=== PATIENT | female | born 1975 | race Caucasian/White ===

== ENCOUNTER 2020-04-17 09:43 | Outpatient (CLI) | payer BC, SELFPAY ==
[2020-04-17 10:54] LABS: Influenza Control Valid (Valid)
[2020-04-19 18:58] LABS: SARS-CoV-2 RNA PCR Negative
== END 2020-04-17 09:44 | disposition home or self-care (01) ==
LOC: CHSLAB 09:54
PROVIDERS: PCP Family Medicine; Visit Provider Family Medicine
DX: J00 Acute nasopharyngitis [common cold] (principal); Z20.828 Contact with and (suspected) exposure to other viral communicable diseases
CPT/HCPCS: 87081; 87635; 87804; 87880; C9803; U0003

== ENCOUNTER 2021-10-13 12:13 | Outpatient (CLI) | payer OTHER, SELFPAY ==
--- NOTE | ~2021-10-13 | CT_ITS ---
EXAMINATION: CT abdomen pelvis wo con DATE: 10/13/2021 12:40 INDICATION: Intermittent generalized abdominal pain, periumbilical pain, with nausea, vomiting, const ipation TECHNIQUE: Computed tomography (CT) of the abdomen and pelvis was performed without intravenous contr ast. Automated exposure control and iterative reconstruction technique were employed. Exam dose: 213 .87 mGy-cm total exam DLP. COMPARISON: 04/23/2019 CT abdomen pelvis FINDINGS: The lung bases are clear. Normal heart size. No pericardial or pleural effusion. The liver, gallbladder, bile ducts, spleen, pancreas and pancreatic duct are unremarkable. Normal morphology of the adrenal glands. No renal mass lesion or urinary tract calculus or hydroureteronephrosis.. The uterus, adnexal areas and urinary bladder are unremarkable. There is evidence of bilateral tubal ligation. Normal caliber of the abdominal aorta. No intraperitoneal or retroperitoneal or pelvic mass lesion or adenopathy or ascites. No suspicious osteolytic or osteoblastic lesions. Probable appendectomy. No bowel obstruction or intraperitoneal free air. IMPRESSION: Probable appendectomy Bilateral tubal ligation Reviewed, dictated and finalized at [facility]. Reviewed, dictated and finalized at [facility].
== END 2021-10-13 12:14 | disposition home or self-care (01) ==
PROVIDERS: PCP Family Medicine; Visit Provider Family Medicine
DX: R10.84 Generalized abdominal pain (principal)
CPT/HCPCS: 74176

== ENCOUNTER 2021-10-14 14:22 | Outpatient (CLI) | payer OTHER, SELFPAY ==
--- NOTE | ~2021-10-14 | MM_ITS ---
CORRECTED REPORT order change 10/15/21 [facility] [place] EXAMINATION: MM screening mammo BI w ruba HISTORY: Screening TECHNIQUE: Craniocaudal and mediolateral oblique 3-D tomosynthesis images were obtained and synthetic 2-D images were generated. CAD analysis was submitted and interpreted. COMPARISON: No prior mammogram is available for comparison at this institution. BREAST PARENCHYMAL COMPOSITION: Breast composed of scattered areas of fibroglandular density FINDINGS: There is a focal asymmetric mass in the lower inner quadrant of the right breast, middle third. The left breast is within normal limits without suspicious mass, calcification or architectural distortion. IMPRESSION: 1. Right breast mass, lower inner quadrant. 2. Additional spot compression and mediolateral views with possible follow-up breast ultrasound recommended. BI-RADS CATEGORY 0 - INCOMPLETE STUDY, NEED ADDITIONAL IMAGING EVALUATION. Reviewed, dictated and finalized at [facility]. MTDD IMPRESSION: 1. Right breast mass, lower inner quadrant. 2. Additional spot compression and mediolateral views with possible follow-up b reast ultrasound recommended. BI-RADS CATEGORY 0 - INCOMPLETE STUDY, NEED ADDITIONAL IMAGING EVALUATION.
== END 2021-10-14 14:23 | disposition home or self-care (01) ==
LOC: CHSIMG 14:22
PROVIDERS: PCP Family Medicine; Visit Provider Family Medicine
DX: Z12.31 Encounter for screening mammogram for malignant neoplasm of breast (principal)
CPT/HCPCS: 77063; 77067

== ENCOUNTER 2021-10-22 10:06 | Outpatient (CLI) | payer OTHER, SELFPAY ==
--- NOTE | ~2021-10-22 | MMUS_ITS ---
EXAMINATION: MM diagnostic paul RT w ruba, US breast RT complete HISTORY: Focal asymmetry mass in the lower inner quadrant of right breast middle third reported on screening mammogram TECHNIQUE: Additional 3-D tomosynthesis images of the right breast were performed and synthetic 2-D i mages were generated. CAD analysis was submitted and interpreted. High resolution complete right [address] st ultrasound including all 4 quadrants and subareolar area was performed. COMPARISON: 10/17/2021 bilateral screening mammogram FINDINGS: MAMMOGRAPHIC FINDINGS: Approximately 9 mm ill-defined low density opacity is noted in the lower inner right breast. Otherwise no suspicious mass or architectural distortion, malignant calcification, skin thickening or retraction is evident. ULTRASOUND: 3:00 3 cm from nipple: Parallel circumscribed hypoechoic 1.6 x 4.6 x 4.1 mm lesion without internal v ascularity or posterior shadowing, benign in appearance, likely septated cyst 3:00 2 cm from nipple: 4.6 x 1.3 x 4.6 mm circumscribed parallel hypoechoic lesion, benign in appeara nce 4:00 3 cm from nipple: Parallel circumscribed sonolucency measuring 5.6 x 1.7 x 5.7 mm, consistent wi th small cyst 5:00 3 cm from nipple: Parallel circumscribed hypoechoic solid lesion measuring 10.5 x 3 x 9.9 mm, wi th through transmission, benign in appearance, likely fibroadenoma 6:00 4 cm from nipple: Parallel circumscribed hypoechoic 6.8 x 2.1 x 6.6 mm solid lesion, without int ernal vascularity or posterior shadowing, likely benign IMPRESSION: 1. Probable benign right breast masses 2. 6 month diagnostic right mammogram and right breast ultrasound follow-up is recommended BI-RADS category 3, probably benign findings. Reviewed, dictated and finalized at [facility]. IMPRESSION: 1. Probable benign right breast masses 2. 6 month diagnostic right mammogram and right breast ultrasound follow-up is recommended BI-RADS category 3, probably benign findings.
== END 2021-10-22 10:07 | disposition home or self-care (01) ==
LOC: CHSIMG 10:07
PROVIDERS: PCP Family Medicine; Visit Provider Family Medicine
DX: R92.8 Other abnormal and inconclusive findings on diagnostic imaging of breast (principal)
CPT/HCPCS: 76641; 77061; 77065; G0279

== ENCOUNTER 2023-08-25 11:58 | Outpatient (CLI) | payer OTHER, SELFPAY ==
[2023-08-25 12:29] LABS: Basophils Absolute Auto 0.05 K/mm3 (0.00-0.10); Basophils Percent Auto 0.5 % (0.0-1.0); Eosinophils Absolute Auto 0.03 K/mm3 (0.02-0.50); Eosinophils Percent Auto 0.3 % (1.0-6.0); Hematocrit 39.7 % (35.0-49.0); Hemoglobin 12.8 g/dL (12.0-15.0); Immature Granulocyte Absolute 0.03 K/mm3 (0.00-0.00); Immature Granulocyte Percent A 0.3 % (0.0-0.0); Lymphocytes Absolute Auto 2.28 K/mm3 (1.10-4.50); Lymphocytes Percent Auto 23.4 % (18.0-42.0); Mean Corpuscular HGB Conc 32.2 g/dL (32-36); Mean Corpuscular Hemoglobin 27.2 pg (27.0-31.0); Mean Corpuscular Volume 84.5 fL (78.0-102.0); Mean Platelet Volume 8.5 fl (9.2-11.8); Monocytes Absolute Auto 0.67 K/mm3 (0.10-0.90); Monocytes Percent Auto 6.9 % (2.0-11.0); Neutrophils Absolute Auto 6.69 K/mm3 (1.70-7.20); Neutrophils Percent Auto 68.6 % (50.0-70.0); Platelet Count Result 330 K/mm3 (150-420); Red Cell Distribution Width 12.2 % (11.6-14.4); White Blood Count 9.8 K/mm3 (4.8-10.8)
[2023-08-25 12:31] LABS: Appearance Urine Cloudy (Clear); Bilirubin Urine 2+ (Negative); Blood Urine Trace-intact (Negative); Color Urine Dark Yellow (Yellow); Glucose Urine UA Negative (Negative); Ketones Urine 3+ (Negative); Leukocyte Esterase Ur Trace LEU/UL (Negative); Nitrate Urine Negative (Negative); Protein Urine 2+ (Negative); Specific Grav Ur >= 1.030 (1.010-1.020)
[2023-08-25 12:51] LABS: Alanine Aminotransferase 19 U/L (14-59); Albumin Level 4.2 g/dL (3.4-5.0); Alkaline Phosphatase 107 U/L (46-116); Amylase 56 U/L (25-115); Anion Gap 12 mmol/L (4-12); Aspartate Amino Transferase 13 U/L (15-37); Bilirubin,Total 0.5 mg/dL (0.00-1.00); Blood Urea Nitrogen 10 mg/dL (7-18); Calcium 8.9 mg/dL (8.5-10.1); Carbon Dioxide 27 mmol/L (21-32); Chloride 102 mmol/L (98-108); Creatine Kinase 74 U/L (26-192); Estimated Glomerular Filt Rate > 60; Glucose 131 mg/dL (70-99); Lipase 26 U/L (16-77); Osmolality Calculated 293 mOsm/kg (285-295); Potassium 3.7 mmol/L (3.5-5.1); Sodium 141 mmol/L (136-145); Total Protein 7.8 g/dL (6.4-8.2); Troponin I 9.2 ng/L (0.00-60.4)
[2023-08-25 13:11] LABS: Add Urine Microscopic? YES; Bacteria Urine 1+ /hpf; Mucus Urine Few /lpf; RBC Urine 0-2 /hpf (0-2); Squamous Epithelial Cell Urine Few /hpf (Few)
== END 2023-08-25 11:59 | disposition home or self-care (01) ==
LOC: CHSLAB 12:00
PROVIDERS: PCP Family Medicine; Visit Provider Family Medicine
DX: R07.9 Chest pain, unspecified (principal)
CPT/HCPCS: 36415; 80053; 81001; 82150; 82550; 82553; 83690; 84484; 85025

== ENCOUNTER 2025-02-03 21:23 | Emergency (ER) | payer BC, SELFPAY ==
[2025-02-03] VITALS (7 sets, daily range): BP systolic 132–169; BP diastolic 68–85; PULSE 67–79; RESP 11–24; TEMP 36.4; O2SAT 96–99
--- NOTE | ~2025-02-03 | XR_ITS ---
Examination: XR chest 1V portable Clinical History: LEFT SIDE CHEST PAIN AND COUGH X 2 WEEKS. Comparison: None Technique: Portable AP Findings: Heart size normal. Lungs clear. No acute bony abnormality. IMPRESSION: 1. No acute cardiopulmonary findings given portable technique. Reviewed, dictated and finalized at location [facility].
--- NOTE | 2025-02-03 21:24 | ECG_ITS ---
Test Date: 2025-02-03 21:24:02 Measurements Intervals [place] Rate: 80 P: 48 [place]: 146 QRS: -18 QRSD: 80 T: 22 QT: 375 QTc: 433 Interpretive Statements SINUS RHYTHM VOLTAGE CRITERIA FOR LVH MINIMAL Q WAVES- HIGH LATERAL LEADS ANTEROSEPTAL INFARCT, AGE INDETERMINATE BASELINE ARTIFACT- I, II, III, AVL, AVF ABNORMAL ECG No previous ECG available for comparison Electronically Signed On 02-04-2025 06:12:16 CDT by Carlos Goodwin D.O.
--- NOTE | 2025-02-03 21:26 | ED.CHESTPAIN ---
HPI - Chest Pain General Chief Complaint: Chest Pain Stated Complaint: Chest pain Time Seen by Provider: 02/03/25 21:24 Source: patient Mode of arrival: ambulatory Limitations: no limitations History of Present Illness HPI narrative: Patient is a 49-year-old female with chest pain a mid central chest and left anterior axillary area for the past 3-4 weeks. It has been a constant pain. Occasional back pain. She said she finally is coming in to get it looked at at this time is it has gotten a little bit worse and she has time to come see a doctor today. MD complaint: chest pain Pertinent past history: other (None) Onset (ago): week(s) (3-4) Timing of current episode: constant, daily, increasing and still present Prior episodes: Yes Onset: during rest, during exertion, after eating and awoke with symptoms Pain location: substernal, left chest, right chest and lateral Pain radiation: none Severity: moderate Pain scale (0-10): 6 Quality: sharp Relieving factors: nothing Exacerbating factors: nothing Context: other (Patient has chest pain that has been going on for 3-4 weeks and getting worse with associated shortness of breath) Associated symptoms: dyspnea Treatment prior to arrival: none Risk Factors Coronary artery disease risk factors: smoking history Thoracic aortic dissection risk factors: none Related Data On Oral Contraceptives: No Home Medications ?Medication ?Instructions ?Recorded ?Confirmed ?Last Taken ?Type hydroxyzine HCl 50 mg tablet 50 mg PO QID PRN Anxiety 03/20/19 02/03/25 Unknown History escitalopram oxalate 10 mg tablet 10 mg PO DAILY 02/03/25 02/03/25 Unknown History ibuprofen 400 mg tablet 400 mg PO TID PRN pain 02/03/25 02/03/25 Unknown History ibuprofen 800 mg tablet 800 mg PO TID PRN pain 02/03/25 02/03/25 Unknown History Allergies Allergy/AdvReac Type Severity Reaction Status Date / Time Penicillins Allergy Intermediate Unknown Verified 02/03/25 21:39 Review of Systems Review of Systems: All systems reviewed & are unremarkable except as noted in HPI and below Constitutional: Constitutional: Reports no additional constitutional complaints Eyes: Eyes: Reports no additional eye complaints ENT: Reports system reviewed and no additional complaints, except as documented Cardiovascular: Cardiovascular: Reports no additional cardiovascular complaints Respiratory: Respiratory: Reports no additional respiratory complaints Gastrointestinal: Gastrointestinal: Reports no additional gastrointestinal complaints Genitourinary: Genitourinary: Reports no additional female genitourinary complaints Musculoskeletal: Musculoskeletal: Reports no additional musculoskeletal complaints Integumentary/Breasts: Skin/Breast: Reports system reviewed and no additional complaints, except as docu Neurologic: Reports system reviewed and no additional complaints, except as documented Psychiatric: Psychiatric: Reports no additional psychiatric complaints Endocrine: Endocrine: Reports no additional endocrine complaints Hematologic/Lymphatic: Hematologic/Lymphatic: Reports no additional hematologic/lymphatic complaints Allergic/Immunologic: Allergic/Immunologic: Reports no additional allergic/immunologic complaints [facility] Past Medical History Medical History (Updated 02/03/25 @ 23:10 by Zaki Duval MD) Cigarette nicotine dependence Tobacco dependence Vitamin D deficiency Fibromyalgia Depression Surgical History Surgical History History of appendectomy H/O tubal ligation History of placement of ear tubes Hx of tonsillectomy Family History Family History Mother , mother in her 60s of lung cancer No problems noted. Father , father in his 70s. He had COPD. No problems noted. Social History Social History Smoking packs per day: 0.5 Smoking cigarettes per day: 10.0 Years smoked: 2 Smoking pack-years: 1.00 Smoking status: Current every day smoker Tobacco type: cigarettes Alcohol intake: current Alcohol use details: Details unknown Substance use: never Exam Const: General: healthy appearing Nutritional Appearance: well nourished Orientation/consciousness: patient oriented x3 Limitations: no limitations HENMT: Head: normal to inspection Ears: external ears normal Face/Nose/Sinus: Normal external nose present Eyes: Conjunctivae: conjunctivae normal Pupils: Equal, round and reactive pupils present EOM: EOMs intact bilaterally Neck: Neck: normal visual inspection Chest: Chest palpation & inspection: normal inspection of the chest Resp: Effort & Inspection: normal respiratory effort and not labored Auscultation: clear to auscultation bilaterally and no crackles Cardio: Rate: regular rate Rhythm: regular rhythm Heart sounds: no murmurs GI: Inspection: non-distended Auscultation: normal bowel sounds and bowel sounds present : General: Yes bladder normal to palpation Back/Spine/Pelvis: Back: no CVA tenderness Skin: General skin exam: normal color Rashes: no rashes Wounds: no wounds Neuro: General: patient oriented x3, moves all extremities and no meningeal signs Speech: normal speech Gait exam (Neuro): Normal gait present Extrem: General: normal to inspection Psych: Mental Status: mental status grossly normal Affect: normal affect Attitude: cooperative Course Vital Signs Vital signs: Vital Signs Temperature 36.4 C 02/03/25 21: Pulse Rate 78 02/03/25 21:27 Respiratory Rate 24 H 02/03/25: Blood Pressure 169/80 H 02/03/25 21: Pulse Oximetry 96 02/03/25 21:27 Oxygen Delivery Room Air 02/03/25 21:27 Temperature 36.4 C 02/03/25 21: Pulse Rate 77 02/03/25 22:46 Respiratory Rate 15 02/03/25 22:46 Blood Pressure 139/68 02/03/25 22:46 Pulse Oximetry 98 02/03/25 22:46 Oxygen Delivery Room Air 02/03/25 22:46 MDM - Chest Pain MDM Narrative Medical decision making narrative: Patient is a 49-year-old female with chest pain and shortness of breath for the past 3-4 weeks. She also has a cough. We will do a cardiopulmonary workup at this time. Lab Data Attestation: I reviewed the patient's lab results. 02/03/25 21:53 02/03/25 21:53 Labs: Lab Results 02/03/25 02/03/25 Range/Units 21:38 21:53 WBC 7.3 (4.8-10.8) K/mm3 RBC 4.01 L (4.20-5.40) M/mm3 Hgb 11.3 L (12.0-15.0) g/dL Hct 34.8 L (35.0-49.0) % MCV 86.8 (78.0-102.0) fL MCH 28.2 (27.0-31.0) pg MCHC 32.5 (32-36) g/dL RDW 13.2 (11.6-14.4) % Plt Count 282 (150-420) K/mm3 MPV 8.8 L (9.2-11.8) fl Immature Gran % (Auto) 0.3 H (0.0-0.0) % Neut % (Auto) 53.3 (50.0-70.0) % Lymph % (Auto) 36.8 (18.0-42.0) % [place] % (Auto) 6.3 (2.0-11.0) % Eos % (Auto) 2.5 (1.0-6.0) % Baso % (Auto) 0.8 (0.0-1.0) % Lymph # (Auto) 2.70 (1.10-4.50) K/mm3 [place] # (Auto) 0.46 (0.10-0.90) K/mm3 Eos # (Auto) 0.18 (0.02-0.50) K/mm3 Baso # (Auto) 0.06 (0.00-0.10) K/mm3 Abs Immat Gran (auto) 0.02 H (0.00-0.00) K/mm3 Absolute Neuts (auto) 3.91 (1.70-7.20) K/mm3 Absolute Nucleated RBC 0.00 (0.00-0.00) K/mm3 Nucleated RBC % 0.0 (0-0.0) % PT 11.0 (9.50-12.1) Seconds INR 1.0 APTT 26.5 (23.9-30.70) Sec D-Dimer 0.20 (0.19-0.50) mg/L Sodium 137 (137-145) mmol/L Potassium 4.2 (3.4-5.0) mmol/L Chloride 102 (98-107) mmol/L Carbon Dioxide 26 (22-30) mmol/L Anion Gap 9 (4-12) mmol/L BUN 6 L (7-17) mg/dL Creatinine 0.75 (0.7-1.0) mg/dL Estim Creat Clear Calc 72 ml/min Estimated GFR > 60 (59 - ) Glucose 109 (65-110) mg/dL Calculated Osmolality 282 L (285-295) mOsm/kg Calcium 9.6 (8.4-10.2) mg/dL Total Bilirubin 0.3 (0.2-1.3) mg/dL AST 22 (14-36) U/L ALT 16 (6-35) U/L Alkaline Phosphatase 81 (38-126) U/L Troponin I < 0.012 (0.000-0.034) ng/mL NT-Pro-B Natriuret Pep 78 (19.9-100) pg/mL Total Protein 8.2 (6.3-8.2) g/dL Albumin 4.7 (3.5-5.1) g/dL Lipase 68 (23-300) U/L Urine Color Light yellow (Yellow) Urine Appearance Clear (Clear) Urine pH 6.0 (5.0-8.0) Ur Specific [place] <= 1.005 L (1.010-1.020) Urine Protein Negative (Negative) Urine Glucose (UA) Negative (Negative) Urine Ketones Negative (Negative) Ur Blood (Man) Negative (Negative) Urine Nitrate Negative (Negative) Urine Bilirubin Negative (Negative) Urine Urobilinogen 0.2 (0.2-1.0) mg/dL Leukocyte Esterase Rfl Negative (Negative) RENETTA/UL Imaging Data Attestation: I personally reviewed and interpreted this imaging study as follows: Radiologist's impression: Chest x-ray shows no acute process ECG Data EKG #1: Attestation: I personally reviewed and interpreted this ECG as follows: ECG completion date: 02/03/25 ECG completion time: 23:09 EKG Interpretation: normal rate, sinus rhythm, no ectopy, non-specific ST changes, normal QRS, normal QT and left axis Discharge Plan Discharge Clinical Impression: Acute bacterial bronchitis Patient Disposition: Home Condition: Stable Instructions: Antibiotic Form, Acute Bronchitis (ED) Patient Language: Japanese Prescriptions: New methylprednisolone [Medrol (Indra)] 4 mg tablets,dose pack See Rx Instructions .ROUTE .COMPLEX Qty: 21 0RF Rx Instructions: orally per package directions doxycycline monohydrate 100 mg capsule 100 mg PO BID 10 Days Qty: 20 0RF albuterol sulfate [Ventolin HFA] 90 mcg/actuation HFA aerosol inhaler 2 inh inhalation QID PRN (Reason: shortness of breath or wheezing) Qty: 6.7 0RF No Action escitalopram oxalate 10 mg tablet 10 mg PO DAILY ibuprofen 800 mg tablet 800 mg PO TID PRN (Reason: pain) Patient Comments: PRN ibuprofen 400 mg tablet 400 mg PO TID PRN (Reason: pain) Patient Comments: PRN hydroxyzine HCl 50 mg tablet 50 mg PO QID PRN (Reason: Anxiety) Follow-up/Referrals: Ross Corral MD [Primary Care Provider, Internal Medicine] Stand Alone Forms: Work/School Release IP Time of Disposition: 23:12
--- NOTE | 2025-02-03 21:27 | PC.NURSE ---
EKG IN PROGRESS DURING ASSESSMENT
--- NOTE | 2025-02-03 21:41 | PC.NURSE ---
KEYUR COMPLETED. SANDRA WITH LAB AT THE BEDSIDE.
[2025-02-03 22:01] LABS: Hematocrit 34.8 % (35.0-49.0); Hemoglobin 11.3 g/dL (12.0-15.0); Immature Granulocyte Percent A 0.3 % (0.0-0.0); Lymphocytes Absolute Auto 2.70 K/mm3 (1.10-4.50); Mean Corpuscular HGB Conc 32.5 g/dL (32-36); Mean Corpuscular Hemoglobin 28.2 pg (27.0-31.0); Mean Corpuscular Volume 86.8 fL (78.0-102.0); Nucleated Red Blood Cells Absolute Auto 0.00 K/mm3 (0.00-0.00); Nucleated Red Blood Cells Perc 0.0 % (0-0.0); Platelet Count Result 282 K/mm3 (150-420); Red Blood Count 4.01 M/mm3 (4.20-5.40); White Blood Count 7.3 K/mm3 (4.8-10.8)
[2025-02-03 22:13] LABS: Lipase 68 U/L (23-300)
[2025-02-03 22:14] LABS: Alanine Aminotransferase 16 U/L (6-35); Albumin Level 4.7 g/dL (3.5-5.1); Alkaline Phosphatase 81 U/L (38-126); Anion Gap 9 mmol/L (4-12); Aspartate Amino Transferase 22 U/L (14-36); Bilirubin,Total 0.3 mg/dL (0.2-1.3); Blood Urea Nitrogen 6 mg/dL (7-17); Calcium 9.6 mg/dL (8.4-10.2); Carbon Dioxide 26 mmol/L (22-30); Chloride 102 mmol/L (98-107); Estimated CRCL calculation 72 ml/min; Estimated Glomerular Filt Rate > 60; Glucose 109 mg/dL (65-110); Osmolality Calculated 282 mOsm/kg (285-295); Potassium 4.2 mmol/L (3.4-5.0); Sodium 137 mmol/L (137-145); Total Protein 8.2 g/dL (6.3-8.2)
[2025-02-03 22:23] LABS: NT Pro B Type Natriuretic Pept 78 pg/mL (19.9-100)
[2025-02-03 22:25] LABS: Troponin I < 0.012 ng/mL (0.000-0.034)
[2025-02-03 22:27] LABS: INR 1.0; Partial Thromboplastin Time 26.5 Sec (23.9-30.70); Prothrombin Time 11.0 Seconds (9.50-12.1)
[2025-02-03 22:39] LABS: Add Urine Microscopic? NO; Appearance Urine Clear (Clear); Glucose Urine UA Negative (Negative); Leukocyte Esterase Ur Negative LEU/UL (Negative); Nitrate Urine Negative (Negative); Specific Grav Ur <= 1.005 (1.010-1.020)
--- NOTE | 2025-02-03 22:45 | PC.NURSE ---
PATIENT IS RESTING ON STRETCHER. URINE ORDER PENDING. REQUESTED SOMETHING TO DRINK. WATER GIVEN. CALL LIGHT IN REACH
--- NOTE | 2025-02-03 23:06 | PC.NURSE ---
PATIENT WANTED TO BE REMOVED FROM [employer]. DONE. PATIENT IS GETTING DRESSED. PATIENT IS READY TO GO HOME
== END 2025-02-03 23:18 | disposition home or self-care (01) ==
PROVIDERS: Emergency Provider Emergency Medicine; PCP Family Medicine
DX: J20.9 Acute bronchitis, unspecified (principal); F17.210 Nicotine dependence, cigarettes, uncomplicated; Z79.899 Other long term (current) drug therapy; Z79.1 Long term (current) use of non-steroidal anti-inflammatories (NSAID)
CPT/HCPCS: 36415; 71045; 80053; 81003; 83690; 83880; 84484; 85025; 85380; 85610; 85730; 93005; 99284